=== PATIENT | male | born 1975 | race Asian ===

== ENCOUNTER 2020-10-26 10:40 | Emergency (ER) | payer OTHER | END 2020-10-26 13:22 | disposition home or self-care (01) | LOC: ER1 10:40 | DX: S06.0X9A Concussion with loss of consciousness of unspecified duration, initial encounter (principal); E03.9 Hypothyroidism, unspecified; Z88.0 Allergy status to penicillin; Z88.5 Allergy status to narcotic agent; Z79.899 Other long term (current) drug therapy; W11.XXXA Fall on and from ladder, initial encounter | CPT/HCPCS: 70450; 71045; 72125; 99284 ==